=== PATIENT | male | born 1965 | race Two or more races ===

== ENCOUNTER 2016-08-29 23:31 | Emergency (ER) | payer SELFPAY ==
[~2016-08-29] VITALS: Ht 160 cm; Wt 61.2 kg
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
[2016-08-30] MEDS ORDERED: IBUPROFEN 600 MG TABLET PO ONE
[2016-08-30 00:01] VITALS: BP 129/68
== END 2016-08-30 00:02 | disposition home or self-care (01) ==
LOC: ER 23:34
DX: S16.1XXA Strain of muscle, fascia and tendon at neck level, initial encounter (principal); V43.52XA Car driver injured in collision with other type car in traffic accident, initial encounter; Y93.89 Activity, other specified; Y92.488 Other paved roadways as the place of occurrence of the external cause; Y99.8 Other external cause status
CPT/HCPCS: 99283; A4606; Z7610